=== PATIENT | female | born 1990 | race Two or more races ===

== ENCOUNTER 2018-03-31 13:34 | Emergency (ER) | payer MEDICAID ==
[~2018-03-31] VITALS: Ht 154.9 cm; Wt 116.0 kg
[2018-03-31] MEDS ORDERED: SODIUM CHLORIDE 0.9% 1,000 ML IV ONE ×2 (13:58→15:45)
[2018-03-31 14:57] LABS: HEMATOCRIT. 42.4 % (36.0-48.0); HEMOGLOBIN. 14.5 g/dL (12.0-16.0); MEAN PLATELET VOLUME 7.5 fl (7.4-10.4); PLATELET 219 x1000/uL (130-400); RED BLOOD CELL COUNT 4.66 mill/uL (4.2-5.4); RED CELL DISTRIBUTION WIDTH 12.8 % (11.6-14.6)
[2018-03-31 15:01] LABS: CHLORIDE 109 mEq/L (98-107)
[2018-03-31] MEDS ORDERED: POTASSIUM CHLORIDE 20MEQ/PACKET PO ONE (15:45)
[2018-03-31 15:52] LABS: PLATELET ESTIMATE NORMAL
[2018-03-31 16:18] LABS: CLARITY URINE CLOUDY (CLEAR); COLOR URINE RED (YELLOW); KETONES URINE TRACE (NEGATIVE); LEUKOCYTE ESTERASE URINE 1+ (NEGATIVE); NITRITE URINE POSITIVE (NEGATIVE); OCCULT BLOOD URINE 3+ (NEGATIVE); PROTEIN URINE 3+ (NEGATIVE); SPECIFIC GRAVITY URINE 1.045 (1.005-1.030); UROBILINOGEN URINE 0.2 E.U./dL (0.2-1.0)
[2018-03-31] MEDS ORDERED: CEFTRIAXONE 1 G PREMIX 50 ML IV NR (16:30)
[2018-03-31] MEDS ORDERED: ACETAMINOPHEN 325MG TABLET PO ONE (16:45)
[2018-03-31] MEDS ORDERED: IOHEXOL-350 100 ML BOTTLE ONE (16:50)
[2018-03-31 18:28] VITALS: BP 123/79
== END 2018-03-31 19:08 | disposition home or self-care (01) ==
LOC: ER 13:34
DX: N39.0 Urinary tract infection, site not specified (principal); E87.6 Hypokalemia; R05 Cough; R07.9 Chest pain, unspecified; M54.9 Dorsalgia, unspecified; R51 Headache; R00.0 Tachycardia, unspecified; R61 Generalized hyperhidrosis; F17.200 Nicotine dependence, unspecified, uncomplicated
CPT/HCPCS: 36415; 71045; 71275; 74177; 80053; 80307; 81003; 81025; 83605; 84484; 85025; 85379; 87804; 93005; 96361; 96365; 96366; 99284; J0696; J7030; Q9967

== ENCOUNTER 2018-05-31 15:40 | Emergency (ER) | payer MEDICAID ==
[~2018-05-31] VITALS: Ht 154.9 cm; Wt 109.0 kg
[2018-05-31 17:47] VITALS: BP 135/80
== END 2018-05-31 20:20 | disposition left against medical advice (07) ==
LOC: ER 15:40
DX: Z53.21 Procedure and treatment not carried out due to patient leaving prior to being seen by health care provider (principal)

== ENCOUNTER 2018-06-05 07:25 | Emergency (ER) | payer MEDICAID ==
[~2018-06-05] VITALS: Ht 154.9 cm; Wt 66.0 kg
[2018-06-05] MEDS ORDERED: ACETAMINOPHEN 325MG TABLET PO STA (11:44)
[2018-06-05 12:17] LABS: BASOPHILS % 0.5 % (0.0-2.0); EOSINOPHILS % 0.7 % (0.0-5.0); HEMATOCRIT. 38.9 % (36.0-48.0); LYMPHOCYTES % 31.5 % (20.0-50.0); MEAN CORPUSCULAR HEMOGLOBIN 30.6 pg (28.0-32.0); MEAN CORPUSCULAR VOLUME 91.7 fL (81.0-99.0); MEAN PLATELET VOLUME 7.8 fl (7.4-10.4); MONOCYTES % 8.8 % (2.0-8.0); NEUTROPHILS % 58.5 % (40.0-76.0); PLATELET 207 x1000/uL (130-400); RED BLOOD CELL COUNT 4.24 mill/uL (4.2-5.4); RED CELL DISTRIBUTION WIDTH 12.3 % (11.6-14.6)
[2018-06-05 12:27] LABS: CHLORIDE 109 mEq/L (98-107)
[2018-06-05 12:51] LABS: B-HCG QUANTITATIVE 1305 mIU/mL (<3)
[2018-06-05 14:41] LABS: CLARITY URINE TURBID (CLEAR); COLOR URINE AMBER (YELLOW); KETONES URINE TRACE (NEGATIVE); LEUKOCYTE ESTERASE URINE 1+ (NEGATIVE); NITRITE URINE NEGATIVE (NEGATIVE); OCCULT BLOOD URINE 3+ (NEGATIVE); PH URINE 5.5 (4.5-8.0); PROTEIN URINE 1+ (NEGATIVE); SPECIFIC GRAVITY URINE 1.024 (1.005-1.030); UROBILINOGEN URINE 0.2 E.U./dL (0.2-1.0)
[2018-06-05 15:15] VITALS: BP 127/63
== END 2018-06-05 15:25 | disposition home or self-care (01) ==
LOC: ER 07:48
DX: O26.891 Other specified pregnancy related conditions, first trimester (principal); R10.2 Pelvic and perineal pain; O20.9 Hemorrhage in early pregnancy, unspecified; O23.41 Unspecified infection of urinary tract in pregnancy, first trimester; R03.0 Elevated blood-pressure reading, without diagnosis of hypertension; Z3A.01 Less than 8 weeks gestation of pregnancy
CPT/HCPCS: 36415; 76801; 81025; 84702; 86850; 86900; 99284

== ENCOUNTER 2018-06-08 01:24 | Inpatient (IN) | payer MEDICAID ==
[~2018-06-08] VITALS: Ht 154.9 cm; Wt 109.8 kg
[2018-06-08] MEDS ORDERED: ACETAMINOPHEN 325MG TABLET PO PRN (01:45)
[2018-06-08] MEDS ORDERED: SODIUM CHLORIDE 0.9% 1,000 ML IV ONE (01:45)
[2018-06-08 02:08] LABS: BASOPHILS % 0.4 % (0.0-2.0); EOSINOPHILS % 0.9 % (0.0-5.0); MEAN CORPUSCULAR HEMOGLOBIN 30.4 pg (28.0-32.0); MEAN CORPUSCULAR VOLUME 91.1 fL (81.0-99.0); MEAN PLATELET VOLUME 7.6 fl (7.4-10.4); MONOCYTES % 7.5 % (2.0-8.0); NEUTROPHILS % 73.2 % (40.0-76.0); PLATELET 209 x1000/uL (130-400); RED BLOOD CELL COUNT 4.28 mill/uL (4.2-5.4); RED CELL DISTRIBUTION WIDTH 12.2 % (11.6-14.6)
[2018-06-08 02:13] LABS: CHLORIDE 109 mEq/L (98-107)
[2018-06-08 02:37] LABS: B-HCG QUANTITATIVE 1643 mIU/mL (<3)
[2018-06-08] MEDS ORDERED: MORPHINE SULFATE 4 MG/ML CPJ (NOT FOR IM USE) IV ONE (04:15)
[2018-06-08] MEDS ORDERED: CEFAZOLIN 2,000 MG in SODIUM CHLORIDE 0.9% 100 ML IV SCH (06:00)
[2018-06-08] MEDS ORDERED: CEFAZOLIN 2,000 MG in DEXT 5% WATER 100 ML IV SCH (06:00)
[2018-06-08 08:00] VITALS: BP_SYST 108; BP_SYST 124; BP_DIAS 63; BP_DIAS 89
[2018-06-08] MEDS ORDERED: PROPOFOL 200MG/20ML VIAL IV ONE (08:11)
[2018-06-08] MEDS ORDERED: MIDAZOLAM HCL 5 MG/5 ML VIAL ONE (08:11)
[2018-06-08] MEDS ORDERED: ROCURONIUM BROMIDE 10MG/ML VIAL 5ML IV ONE (08:11)
[2018-06-08] MEDS ORDERED: FENTANYL CITRATE/PF 50MCG/ML 2ML VIAL ONE ×3 (08:11→09:56)
[2018-06-08] MEDS ORDERED: MIDAZOLAM HCL 2 MG/2 ML VIAL ONE (08:12)
[2018-06-08] MEDS ORDERED: LIDOCAINE HCL/PF 1% 10 MG/ML 5ML VIAL ONE (08:13)
[2018-06-08] MEDS ORDERED: CEFAZOLIN SODIUM 1000MG/VIAL ONE (08:15)
[2018-06-08] MEDS ORDERED: ESMOLOL HCL 10MG/ML 10ML VIAL IV ONE (08:50)
[2018-06-08] MEDS ORDERED: NEOSTIGMINE METHYLSULFATE 1MG/ML 10 ML VIAL ONE (08:52)
[2018-06-08] MEDS ORDERED: GLYCOPYRROLATE 0.2 MG/ML 2ML VIAL ONE (08:52)
[2018-06-08] MEDS ORDERED: BUPIVACAINE HCL/PF 0.5% (5MG/ML) 10ML ONE (08:53)
[2018-06-08] MEDS ORDERED: MEPERIDINE HCL/PF 25MG/ML CPJ IV PRN (09:15)
[2018-06-08] MEDS ORDERED: HYDROMORPHONE HCL/PF 2MG/ML CPJ IV PRN (09:15)
[2018-06-08] MEDS ORDERED: FENTANYL CITRATE/PF 50MCG/ML 2ML VIAL IV PRN (09:15)
[2018-06-08] MEDS ORDERED: MORPHINE SULFATE 4 MG/ML CPJ (NOT FOR IM USE) IV PRN (09:15)
[2018-06-08] MEDS ORDERED: ONDANSETRON HCL 4MG/2ML INJ ONE (09:56)
[2018-06-08] MEDS ORDERED: KETOROLAC 30MG/ML VIAL ONE (09:56)
[2018-06-08] MEDS ORDERED: METOCLOPRAMIDE HCL 10MG/2ML VIAL ONE (09:56)
[2018-06-08] MEDS ORDERED: ONDANSETRON HCL 4MG/2ML INJ IV PRN (10:00)
[2018-06-08] MEDS ORDERED: IBUPROFEN 400MG TABLET PO PRN (10:00)
[2018-06-08] MEDS ORDERED: BISACODYL 10MG SUPP PR PRN (10:00)
[2018-06-08 12:30] VITALS: BP_SYST 113; BP_SYST 171; BP_DIAS 65; BP_DIAS 91
[2018-06-08] MEDS: MAGNESIUM/ALUMINUM HYDROXIDE/SIMETHICONE 30ML UDC PO SCH ×3 (12:50→21:15)
[2018-06-08] MEDS: MORPHINE SULFATE 4 MG/ML CPJ (NOT FOR IM USE) IV PRN ×2 (13:01→17:47)
[2018-06-08] MEDS: ONDANSETRON HCL 4MG/2ML INJ IV PRN ×2 (13:01→21:13)
[2018-06-08] MEDS: SIMETHICONE 80MG TABLET CHEW PO SCH ×3 (13:20→21:15)
[2018-06-08 16:05] VITALS: BP 115/68
[2018-06-08] MEDS: DEXT 5%/LACTATED RINGERS 1,000 ML IV SCH (18:05)
[2018-06-08] MEDS: HYDROCODONE/ACETAMINOPHEN 5/325MG TABLET PO PRN (21:14)
[2018-06-08] MEDS: DOCUSATE SODIUM 100MG CAPSULE PO SCH (21:15)
[2018-06-08] MEDS: IBUPROFEN 800MG TABLET PO PRN (23:09)
[2018-06-08] MEDS: DIPHENHYDRAMINE 25MG CAPSULE PO PRN (23:09)
[2018-06-09] MEDS: DEXT 5%/LACTATED RINGERS 1,000 ML IV SCH ×3 (01:57→21:10)
[2018-06-09] MEDS: HYDROCODONE/ACETAMINOPHEN 5/325MG TABLET PO PRN (01:58)
[2018-06-09 04:00] VITALS: BP 100/56
[2018-06-09 07:51] LABS: BASOPHILS % 0.1 % (0.0-2.0); EOSINOPHILS % 0.7 % (0.0-5.0); HEMATOCRIT. 32.1 % (36.0-48.0); HEMOGLOBIN. 10.9 g/dL (12.0-16.0); LYMPHOCYTES % 19.6 % (20.0-50.0); MEAN CORPUSCULAR HEMOGLOBIN 31.2 pg (28.0-32.0); MEAN CORPUSCULAR VOLUME 92.4 fL (81.0-99.0); MEAN PLATELET VOLUME 7.8 fl (7.4-10.4); MONOCYTES % 10.5 % (2.0-8.0); NEUTROPHILS % 69.1 % (40.0-76.0); PLATELET 165 x1000/uL (130-400); RED BLOOD CELL COUNT 3.48 mill/uL (4.2-5.4); RED CELL DISTRIBUTION WIDTH 12.2 % (11.6-14.6)
[2018-06-09 08:00] VITALS: BP 101/64
[2018-06-09] MEDS: MAGNESIUM/ALUMINUM HYDROXIDE/SIMETHICONE 30ML UDC PO SCH ×4 (08:21→20:52)
[2018-06-09] MEDS: SIMETHICONE 80MG TABLET CHEW PO SCH ×4 (08:21→20:53)
[2018-06-09] MEDS: IBUPROFEN 800MG TABLET PO PRN (08:24)
[2018-06-09] MEDS ORDERED: KETOROLAC 60MG/2ML VIAL IM NR (08:45)
[2018-06-09] MEDS: ACETAMINOPHEN WITH CODEINE 300/30MG TABLET PO SCH ×4 (09:48→20:53)
[2018-06-09 12:00] VITALS: BP 115/68
[2018-06-09] MEDS: ONDANSETRON HCL 4MG/2ML INJ IV PRN (12:27)
[2018-06-09 16:00] VITALS: BP 117/77
[2018-06-09] MEDS: KETOROLAC 30MG/ML VIAL IV PRN (17:31)
[2018-06-09 20:00] VITALS: BP 124/84
[2018-06-09] MEDS: DOCUSATE SODIUM 100MG CAPSULE PO SCH (20:53)
[2018-06-10] VITALS: BP 117/78
[2018-06-10] MEDS: KETOROLAC 30MG/ML VIAL IV PRN ×3 (00:50→14:59)
[2018-06-10] MEDS: ACETAMINOPHEN WITH CODEINE 300/30MG TABLET PO SCH ×4 (01:39→13:00)
[2018-06-10 04:00] VITALS: BP 112/61
[2018-06-10 08:00] VITALS: BP 115/72
[2018-06-10] MEDS: MAGNESIUM/ALUMINUM HYDROXIDE/SIMETHICONE 30ML UDC PO SCH ×2 (08:26→12:23)
[2018-06-10] MEDS: DIPHENHYDRAMINE 25MG CAPSULE PO PRN (08:27)
[2018-06-10] MEDS: SIMETHICONE 80MG TABLET CHEW PO SCH ×2 (08:28→12:23)
[2018-06-10 12:00] VITALS: BP 129/79
[2018-06-10 16:00] VITALS: BP 118/78
[2018-06-10] MEDS ORDERED: TETANUS, DIPHTHERIA, PERTUSSIS VAC/PF 0.5ML (>7YR OLD) IM ONE (16:00)
[2018-06-10] MEDS ORDERED: INFLUENZA VIRUS VACCINE(AFLURIA) 0.5ML SYR IM ONE (16:00)
[2018-06-10 16:30] VITALS: BP 108/75
== END 2018-06-10 17:10 | disposition home or self-care (01) | DRG 545 ==
LOC: ER 01:24 → 6EST 04:15 → ENRESERV 05:52
PROVIDERS: ADMIT Specialist; ATTEND Specialist
PROC: 0UT60ZZ Resection of Left Fallopian Tube, Open Approach (ICD-10-PCS; principal; 2018-06-08)
PROC: 10T20ZZ Resection of Products of Conception, Ectopic, Open Approach (ICD-10-PCS; 2018-06-08)
PROC: 0U910ZZ Drainage of Left Ovary, Open Approach (ICD-10-PCS; 2018-06-08)
DX: O00.102 Left tubal pregnancy without intrauterine pregnancy (principal); E66.01 Morbid (severe) obesity due to excess calories; O99.331 Smoking (tobacco) complicating pregnancy, first trimester; F17.210 Nicotine dependence, cigarettes, uncomplicated; O99.211 Obesity complicating pregnancy, first trimester; O34.81 Maternal care for other abnormalities of pelvic organs, first trimester; N83.12 Corpus luteum cyst of left ovary; N83.202 Unspecified ovarian cyst, left side; O99.89 Other specified diseases and conditions complicating pregnancy, childbirth and the puerperium; Z98.891 History of uterine scar from previous surgery; Z3A.01 Less than 8 weeks gestation of pregnancy
CPT/HCPCS: 36415; 76801; 84702; 86850; 86900; 88305; 90686; 90715; 96361; 96374; 99291; J0690; J1885; J2250; J2270; J2405; J2704; J2710; J2765; J3010; J3490; J7030; J7050; J7060; J7121; Q0163